=== PATIENT | male | born 1995 | race Caucasian/White ===

== ENCOUNTER 2018-06-01 04:02 | Emergency (ER) | payer BC ==
--- NOTE | 2018-06-01 04:35 | EDM.PDOC ---
ED HPI GENERAL MEDICAL PROBLEM - General Chief Complaint: Chest Pain Stated Complaint: chest pain Time Seen by Provider: 06/01/18 04:25 - History of Present Illness INITIAL COMMENTS - FREE TEXT/NARRATIVE: 22-year-old male resents the emergency room with worsening anxiety and now chest pain. Patient is been under a lot of stress and he developed some chest discomfort yesterday afternoon this woke him up from sleep this morning. He has not any breathing difficulties or shortness of breath. He's had some substernal pressure that seems to worsen with his anxiety. Patient denies any reflux symptoms or heartburn. Patient is not aware of any heart conditions amongst family members. The patient has not had any nausea vomiting or radiating pain. The patient is smoker recently quit and then started again. Middle Chest Pain Score (Numeric/FACES): 6 - Related Data Allergies Allergy/AdvReac Type Severity Reaction Status Date / Time codeine Allergy Hallucinati Verified 06/01/18 04:16 ons midazolam [From Versed] Allergy Hallucinati Verified 06/01/18 04:16 ons morphine Allergy Hallucinati Verified 06/01/18 04:16 ons Home Meds: Home Meds hydrOXYzine HCl [Atarax] 25 mg PO Q8H PRN #15 tab 06/01/18 [Rx] Past Medical History - Past Health History Medical/Surgical History: Denies Medical/Surgical History Social & Family History - Tobacco Use Smoking Status *Q: Current Every Day Smoker Years of Tobacco use: 5 Packs/Tins Daily: 0.5 - Recreational Drug Use Recreational Drug Use: Yes Drug Use in Last 12 Months: Yes Recreational Drug Type: Reports: Marijuana/Hashish Recreational Drug Use Frequency: Socially ED ROS GENERAL - Review of Systems Review Of Systems: See Below Constitutional: Reports: No Symptoms HEENT: Reports: No Symptoms Respiratory: Reports: No Symptoms Cardiovascular: Reports: Chest Pain Endocrine: Reports: No Symptoms GI/Abdominal: Reports: No Symptoms : Reports: No Symptoms Neurological: Reports: No Symptoms Psychiatric: Reports: Anxiety ED EXAM, GENERAL - Physical Exam Exam: See Below Exam Limited By: No Limitations General Appearance: Alert, No Apparent Distress Head: Atraumatic, Normocephalic Neck: Normal Inspection, Supple, Non-Tender, Full Range of Motion Respiratory/Chest: No Respiratory Distress, Lungs Clear, Normal Breath Sounds Cardiovascular: Normal Peripheral Pulses, Regular Rate, Rhythm, No Edema GI/Abdominal: Normal Bowel Sounds, Soft, No Organomegaly, No Distention, No Mass , Other (He has some mild epigastric discomfort with palpation no guarding or rigidity rebound tenderness noted on exam) EKG INTERPRETATION EKG Date: 06/01/18 Rhythm: NSR [place]: Normal P-Wave: Present QRS: Normal ST-T: Normal QT: Normal Comparison: NA - No Prior EKG Course - Vital Signs Last Recorded V/S: Last Vital Signs Temp 36.7 C 06/01/18 04:12 Pulse 79 06/01/18 04:12 Resp 16 06/01/18 04:12 BP 133/92 H 06/01/18 04:12 Pulse Ox 99 06/01/18 04:12 - Orders/Labs/Meds Orders: Active Orders 24 hr Category Date Time Status EKG Documentation Completion [RC] STAT Care 06/01/18 04:24 Active Meds: Medications Discontinued Medications Generic Name Dose Route Start Last Admin Trade Name Freq PRN Reason Stop Dose Admin Hydroxyzine HCl 50 mg 06/01/18 04:52 Atarax PO 06/01/18 04:53 ONETIME ONE - Re-Assessments/Exams Free Text/Narrative Re-Assessment/Exam: 06/01/18 05:15 Patient is willing to let us do an EKG on him he refuses lab work or chest x- ray. He has some financial concerns Departure - Departure Time of Disposition: 05:03 Disposition: Home, Self-Care 01 Clinical Impression: Chest pain, Anxiety - Discharge Information Prescriptions: hydrOXYzine HCl [Atarax] 25 mg PO Q8H PRN #15 tab PRN Reason: Anxiety Referrals: PCP,None [Primary Care Provider] - Forms: ED Department Discharge Additional Instructions: Return to the emergency room with any questions problems or worsening symptoms. Use hydroxyzine as needed for anxiety. Try famotidine 20 mg daily. Establish with a local physician call the Hospital clinic [phone] - My Orders Last 24 Hours: My Active Orders 06/01/18 04:24 EKG Documentation Completion [RC] STAT - Assessment/Plan Last 24 Hours: My Active Orders 06/01/18 04:24 EKG Documentation Completion [RC] STAT
[2018-06-01] MEDS ORDERED: hydrOXYzine HCl 25 MG Tab PO ONE (04:52)
== END 2018-06-01 05:19 | disposition home or self-care (01) ==
LOC: JD.ED 04:02
DX: F41.9 Anxiety disorder, unspecified (principal); R07.9 Chest pain, unspecified; F17.210 Nicotine dependence, cigarettes, uncomplicated; Z88.5 Allergy status to narcotic agent; Z88.8 Allergy status to other drugs, medicaments and biological substances
CPT/HCPCS: 93005; 99284; A9270; 93010